=== PATIENT | female | born 1990 | race Caucasian/White ===

== ENCOUNTER 2021-01-26 21:18 | Inpatient (IN) ==
[2021-01-26] MEDS ORDERED: Ondansetron 4 MG/2 ML VIAL IVP PRN (21:55)
[2021-01-26] MEDS ORDERED: Famotidine 20 MG/2 ML VIAL IVP PRN (21:55)
[2021-01-26] MEDS ORDERED: *HR* Nalbuphine 10 MG/ML AMPUL IV PRN (21:55)
[2021-01-26] MEDS ORDERED: Azithromycin 500 MG in 0.9 % Sodium Chloride 250 ML IVPB PRN (21:55)
[2021-01-26] MEDS ORDERED: miSOPROStoL 25 MCG TABLET PO PRN (21:55)
[2021-01-26] MEDS ORDERED: *HR* FentaNYL (PF) 100 MCG/2 ML VIAL IVP PRN (21:55)
[2021-01-26] MEDS ORDERED: Metoclopramide 10 MG/2 ML VIAL IVP PRN (21:55)
[2021-01-26] MEDS ORDERED: Naloxone 0.4 MG/ML INJ IVP PRN (21:55)
[2021-01-26] MEDS ORDERED: Lidocaine 1% 20 ML MDV ID PRN (21:55)
[2021-01-26] MEDS ORDERED: Ringers Solution, Lactated 1,000 ML IVC SCH (22:00)
[2021-01-26 22:24] LABS: Basophils # 0.1 K/mcL (0.0-0.2); Basophils % 0.5 %; Eosinophils % 0.2 %; Hematocrit 38.1 % (35.3-44.9); Hemoglobin 12.6 g/dL (11.5-15.4); Immature Granulocytes % 1.7 % (0-4); Lymphocytes # 1.7 K/mcL (0.6-4.6); Mean Corpuscular HGB Conc 33.1 g/dL (31.6-35.5); Mean Corpuscular Hemoglobin 29.2 pg (28.0-33.3); Mean Corpuscular Volume 88.2 fL (83.0-100.0); Mean Platelet Volume 10.9 fL (9.4-12.4); Monocytes # 0.9 K/mcL (0.0-1.3); Monocytes % 7.6 %; Neutrophils # 9.3 K/mcL (1.6-8.9); Platelet Count 235 K/mcL (140-400); Red Blood Count 4.32 M/mcL (3.82-4.97); Red Cell Distribution Width 13.1 % (11.5-14.5); White Blood Count 12.2 K/mcL (4.3-11.1)
[2021-01-26 22:31] LABS: Amphetamine Screen,Urine Negative ng/mL (Cutoff=1000); Barbiturate Screen,Urine Negative ng/mL (Cutoff=200); Benzodiazepines Screen,Urine Negative ng/mL (Cutoff=200); Cannabinoid Screen,Urine Negative ng/mL (Cutoff = 50); Cocaine Screen,Urine Negative ng/mL (Cutoff= 300); Opiate Screen,Urine Negative ng/mL (Cutoff=300); Phencyclidine Screen,Urine Negative ng/mL (Cutoff=25)
[2021-01-26 23:14] LABS: Adenovirus Not Detected (Not Detect); Coronavirus 229E Not Detected (Not Detect); Coronavirus HKU1 Not Detected (Not Detect); Coronavirus NL63 Not Detected (Not Detect); Coronavirus OC43 Not Detected (Not Detect)
[2021-01-26 23:16] LABS: Bordetella Pertussis Not Detected (Not Detect); Chlamydophila pneumoniae Not Detected (Not Detect); Human Metapneumovirus Not Detected (Not Detect); Human Rhinovirus/Enterovirus Not Detected (Not Detect); Influenza A Subtype 2009 H1 Not Detected (Not Detect); Influenza B Not Detected (Not Detect); Mycoplasma pneumoniae Not Detected (Not Detect); Parainfluenza Virus 1 Not Detected (Not Detect); Parainfluenza Virus 2 Not Detected (Not Detect); Parainfluenza Virus 3 Not Detected (Not Detect); Parainfluenza Virus 4 Not Detected (Not Detect); Respiratory Syncytial Virus Not Detected (Not Detect); SARS-CoV-2 DETECTED (Not Detect)
[2021-01-27] MEDS ORDERED: EPHEDrine 50 MG/ML VIAL IVP PRN (03:55)
[2021-01-27] MEDS ORDERED: Epidural Premix (fent/bupiv) 110 ML EP SCH (04:00)
[2021-01-27] MEDS ORDERED: Oxytocin 20 units/ LR 1000 mL 20 UNIT/1,000 ML BAG IVC SCH ×2 (08:30→17:49)
[2021-01-27] MEDS: GuaiFENesin Liq 200 MG/10 ML UDC PO PRN ×2 (09:11→15:25)
[2021-01-27] MEDS: Chloraseptic Spray 177 ML BOTTLE MM PRN ×2 (09:12→14:24)
[2021-01-27] MEDS ORDERED: Ondansetron ODT 4 MG TAB.RAPDIS SL PRN (17:49)
[2021-01-27] MEDS ORDERED: Lanolin 7 G OINT...G. TP PRN (17:49)
[2021-01-27] MEDS: Acetaminophen 325 MG TABLET PO SCH (21:42)
[2021-01-27] MEDS: Ibuprofen 600 MG TABLET PO SCH (21:42)
[2021-01-27] MEDS: Benzocaine/Menthol 56 GM AEROSOL SPRAY TP PRN (21:44)
[2021-01-27] MEDS ORDERED: Loratadine 10 MG TABLET PO SCH (21:45)
[2021-01-28 03:04] VITALS: O2SAT 97
[2021-01-28] MEDS: Acetaminophen 325 MG TABLET PO SCH ×3 (05:17→23:09)
[2021-01-28] MEDS: Ibuprofen 600 MG TABLET PO SCH ×3 (05:17→23:07)
[2021-01-28] MEDS: Benzocaine/Menthol 56 GM AEROSOL SPRAY TP PRN (08:36)
[2021-01-28] MEDS: Loratadine 10 MG TABLET PO SCH (08:36)
[2021-01-28] MEDS ORDERED: Prenatal Vit/FA 1 EACH TABLET PO SCH (09:00)
[2021-01-28] MEDS ORDERED: GuaiFENesin Liq 200 MG/10 ML UDC PO ONE ×2 (13:02→21:15)
[2021-01-29 07:06] VITALS: BP 127/88; PULSE 87; TEMP 97.6
[2021-01-29] MEDS ORDERED: GuaiFENesin Liq 200 MG/10 ML UDC PO PRN (07:31)
[2021-01-29] MEDS: Ibuprofen 600 MG TABLET PO SCH (08:08)
[2021-01-29] MEDS: Loratadine 10 MG TABLET PO SCH (08:08)
== END 2021-01-29 12:13 | disposition home or self-care (01) | DRG 805 ==
LOC: 1NENULAB 21:18 → 1NENUOBS 01-27 19:42
PROVIDERS: ADMIT Advanced Practice Midwife; ATTEND Advanced Practice Midwife